=== PATIENT | female | born 1945 ===

== ENCOUNTER 2020-07-21 11:06 | Inpatient (IN) ==
[2020-07-21] MEDS ORDERED: MORPHINE 4 MG/1 ML VIAL IV PRN (15:12)
[2020-07-21] MEDS ORDERED: ONDANSETRON 4 MG/2 ML VIAL IV PRN (15:12)
[2020-07-21] MEDS ORDERED: ALBUTEROL 2.5 MG/3 ML NEB RESP TX PRN (15:12)
[2020-07-21] MEDS ORDERED: ENOXAPARIN 30 MG/0.3 ML SYRINGE SUBCUT SCH (15:30)
[2020-07-21] MEDS ORDERED: GLUCAGON 1 MG VIAL IM PRN (17:31)
[2020-07-21] MEDS ORDERED: DIGOXIN 0.5 MG/2 ML AMP IV ONE ×2 (18:30→19:30)
[2020-07-21 18:40] LABS: ABG Base Excess -9.3 MMOL/L (-2.5-2.5); ABG HCO3 16.9 MMOL/L (20-26); ABG Oxygen Saturation 94.9 % (95-100); ABG PCO2 28.6 MM HG (35-48); ABG PH 7.337 (7.35-7.45); ABG PO2 81.2 MM HG (80-95); ABG TCO2 13.9 MMOL/L (23-27)
[2020-07-21] MEDS: INSULIN LISPRO 100 UNIT/ML SUBCUT SCH (19:04)
[2020-07-21] MEDS: MIDAZOLAM 100 MG in SODIUM CHLORIDE 0.9% 80 ML IV PRN (19:14)
[2020-07-21] MEDS: fentaNYL INJ 1,250 MCG in SODIUM CHLORIDE 0.9% 225 ML IV PRN (19:14)
[2020-07-21] MEDS: FAMOTIDINE 20 MG/2 ML VIAL IV SCH (20:50)
[2020-07-21] MEDS: cefTRIAXone 1,000 MG in SYRINGE 1 EACH IV SCH (20:50)
[2020-07-21] MEDS: INSULIN GLARGINE 100 UNIT/ML SUBCUT SCH (22:23)
[2020-07-22] MEDS: INSULIN LISPRO 100 UNIT/ML SUBCUT SCH ×4 (00:58→17:44)
[2020-07-22 03:04] LABS: ABG Base Excess -11.1 MMOL/L (-2.5-2.5); ABG HCO3 15.1 MMOL/L (20-26); ABG Oxygen Saturation 98.1 % (95-100); ABG PCO2 35.1 MM HG (35-48); ABG PH 7.252 (7.35-7.45); ABG PO2 154.7 MM HG (80-95); ABG TCO2 16.2 MMOL/L (23-27); Allen Test Positive; Pt O2 Delivery Device Ventilator
[2020-07-22] MEDS: fentaNYL INJ 1,250 MCG in SODIUM CHLORIDE 0.9% 225 ML IV PRN ×2 (03:15→14:20)
[2020-07-22 04:54] LABS: Basophils % 0.1 % (0.0-0.8); Eosinophils % 0.1 % (0.00-10.9); Hematocrit 31.1 VOL% (35.7-47.0); Hemoglobin 9.6 GM/DL (12.0-16.0); Immature Granulocytes % 2.5 %; Immature Granulocytes Absolute 0.25 #; Lymphocytes # 0.4 10*3/uL (1.4-4.0); Lymphocytes % 4.1 % (21.3-54.2); Mean Corpuscular HGB Conc 30.9 GM/DL (32-36); Mean Corpuscular Volume 92.6 FL (87-102); Mean Platelet Volume 10.4 FL (9.6-12.0); Monocytes % 1.3 % (1.7-12.7); Neutrophils % 91.9 % (38.7-73.9); Platelet Count 212 T/CUMM (130-400); Red Blood Count 3.36 MC/CUMM (3.8-5.5); Red Cell Distribution Width 17.2 % (9.3-17.3)
[2020-07-22 05:14] LABS: Lymphocytes 6 % (20-55); Platelet Estimate Adequate; Segmented Neutrophils 92 % (50-85); Total Cells Counted 100
[2020-07-22 05:15] LABS: Hypochromasia Slight; Microcytosis Slight
[2020-07-22 05:26] LABS: Albumin 1.9 G/DL (3.4-5.0); Bilirubin,Total 0.4 MG/DL (0.2-1.0); Calcium 7.6 MG/DL (8.5-10.1); Osmolality,Calculated 319.8 MOS/KG (273-304); Potassium 4.3 MMOL/L (3.5-5.1); Thyroid Stimulating Hormone 27.9 uIU/ml (0.358-3.74); Total Protein 5.2 G/DL (6.4-8.3)
[2020-07-22] MEDS: FAMOTIDINE 20 MG/2 ML VIAL IV SCH ×2 (08:01→21:02)
[2020-07-22] MEDS ORDERED: SODIUM BICARBONATE 50 MEQ/50 ML VIAL IV ONE (08:34)
[2020-07-22] MEDS: SODIUM BICARBONATE 650 MG TABLET PO SCH ×3 (12:30→21:01)
[2020-07-22] MEDS: cefTRIAXone 1,000 MG in SYRINGE 1 EACH IV SCH (18:26)
[2020-07-22] MEDS: METOPROLOL TARTRATE 25 MG TABLET PO SCH (21:01)
[2020-07-22] MEDS: INSULIN GLARGINE 100 UNIT/ML SUBCUT SCH (22:20)
[2020-07-23] MEDS: INSULIN LISPRO 100 UNIT/ML SUBCUT SCH ×5 (00:25→23:47)
[2020-07-23] MEDS: fentaNYL INJ 1,250 MCG in SODIUM CHLORIDE 0.9% 225 ML IV PRN ×2 (02:57→15:00)
[2020-07-23 04:10] LABS: ABG Base Excess -8.9 MMOL/L (-2.5-2.5); ABG HCO3 17.3 MMOL/L (20-26); ABG Oxygen Saturation 98.7 % (95-100); ABG PCO2 38.8 MM HG (35-48); ABG PH 7.265 (7.35-7.45); Allen Test Positive; Pt O2 Delivery Device Ventilator
[2020-07-23 04:40] LABS: Basophils % 0.1 % (0.0-0.8); Eosinophils # 0.1 10*3/uL (0.0-0.87); Eosinophils % 0.6 % (0.00-10.9); Hematocrit 30.6 VOL% (35.7-47.0); Hemoglobin 9.6 GM/DL (12.0-16.0); Immature Granulocytes % 1.8 %; Lymphocytes # 1.1 10*3/uL (1.4-4.0); Lymphocytes % 9.8 % (21.3-54.2); Mean Corpuscular HGB Conc 31.4 GM/DL (32-36); Mean Corpuscular Volume 91.1 FL (87-102); Mean Platelet Volume 10.7 FL (9.6-12.0); Monocytes % 1.6 % (1.7-12.7); Neutrophils % 86.1 % (38.7-73.9); Platelet Count 199 T/CUMM (130-400); Red Blood Count 3.36 MC/CUMM (3.8-5.5); Red Cell Distribution Width 17.1 % (9.3-17.3); White Blood Count 10.9 T/CUMM (4-12)
[2020-07-23 05:13] LABS: Alanine Aminotransferase 15 U/L (13-56); Albumin 1.8 G/DL (3.4-5.0); Alkaline Phosphatase 105 U/L (45-117); Aspartate Amino Transferase 29 U/L (0-37); Bilirubin,Total < 0.39 MG/DL (0.2-1.0); Blood Urea Nitrogen 112 MG/DL (7-18); Calcium 7.8 MG/DL (8.5-10.1); Carbon Dioxide 18 MMOL/L (21-32); Estimated Glom Filtration Rate 5 ML/MIN; Glucose 122 MG/DL (74-106); Osmolality,Calculated 324.7 MOS/KG (273-304); Potassium 4.4 MMOL/L (3.5-5.1); Sodium 145 MMOL/L (136-145); Total Protein 5.4 G/DL (6.4-8.3)
[2020-07-23 07:40] LABS: Hepatitis B Core IgM Quant < 0.05 Index; Hepatitis B Surface Ag Quant < 0.10 Index; Hepatitis B Surface Ag Result Non-Reactive (NonReactive); Hepatitis C Virus Ab Quant 0.23 Index; Hepatitis C Virus Ab Result Non-Reactive (NonReactive)
[2020-07-23] MEDS: METOPROLOL TARTRATE 25 MG TABLET PO SCH ×2 (08:29→20:27)
[2020-07-23] MEDS: SODIUM BICARBONATE 650 MG TABLET PO SCH ×3 (08:29→20:27)
[2020-07-23] MEDS: FAMOTIDINE 20 MG/2 ML VIAL IV SCH (08:31)
[2020-07-23] MEDS: MIDAZOLAM 100 MG in SODIUM CHLORIDE 0.9% 80 ML IV PRN (14:59)
[2020-07-23] MEDS: cefTRIAXone 1,000 MG in SYRINGE 1 EACH IV SCH (17:32)
[2020-07-23] MEDS ORDERED: HEPARIN 10,000 UNIT/10 ML VIAL IV SCH (19:45)
[2020-07-23] MEDS: DEXTROSE 50% 25 GM/50 ML VIAL IV PRN (23:54)
[2020-07-24] MEDS ORDERED: NOREPINEPHRINE 8 MG in SODIUM CHLORIDE 0.9% 242 ML IV PRN (02:17)
[2020-07-24] MEDS: fentaNYL INJ 1,250 MCG in SODIUM CHLORIDE 0.9% 225 ML IV PRN ×3 (03:03→20:23)
[2020-07-24 04:20] LABS: ABG Base Excess -6.8 MMOL/L (-2.5-2.5); ABG HCO3 18.9 MMOL/L (20-26); ABG Oxygen Saturation 98.3 % (95-100); ABG PCO2 35.3 MM HG (35-48); ABG PH 7.328 (7.35-7.45); Allen Test Positive; Pt O2 Delivery Device Ventilator
[2020-07-24 05:11] LABS: Basophils % 0.2 % (0.0-0.8); Eosinophils # 0.2 10*3/uL (0.0-0.87); Eosinophils % 1.5 % (0.00-10.9); Hematocrit 28.1 VOL% (35.7-47.0); Hemoglobin 8.7 GM/DL (12.0-16.0); Immature Granulocytes % 2.6 %; Immature Granulocytes Absolute 0.41 #; Lymphocytes # 1.3 10*3/uL (1.4-4.0); Lymphocytes % 8.5 % (21.3-54.2); Mean Corpuscular Volume 91.5 FL (87-102); Mean Platelet Volume 11.1 FL (9.6-12.0); Monocytes % 2.3 % (1.7-12.7); Neutrophils % 84.9 % (38.7-73.9); Platelet Count 166 T/CUMM (130-400); Red Blood Count 3.07 MC/CUMM (3.8-5.5); Red Cell Distribution Width 17.1 % (9.3-17.3); White Blood Count 15.6 T/CUMM (4-12)
[2020-07-24 05:36] LABS: Albumin 1.7 G/DL (3.4-5.0); Bilirubin,Total 0.4 MG/DL (0.2-1.0); Calcium 7.6 MG/DL (8.5-10.1); Osmolality,Calculated 322.6 MOS/KG (273-304); Potassium 4.2 MMOL/L (3.5-5.1)
[2020-07-24] MEDS: INSULIN LISPRO 100 UNIT/ML SUBCUT SCH ×4 (05:59→23:52)
[2020-07-24] MEDS: SODIUM BICARBONATE 650 MG TABLET PO SCH ×3 (09:05→20:22)
[2020-07-24] MEDS: METOPROLOL TARTRATE 25 MG TABLET PO SCH ×2 (09:06→20:22)
[2020-07-24] MEDS: FAMOTIDINE 20 MG/2 ML VIAL IV SCH (09:07)
[2020-07-24] MEDS ORDERED: ALTEPLASE 2 MG VIAL IV ONE ×2 (12:00)
[2020-07-24] MEDS: POLYETHYLENE GLYCOL POWDER 17 GM PACK PO SCH (12:20)
[2020-07-24] MEDS: FLUCONAZOLE INJ 200 MG in PREMIX 1 EACH IV SCH (12:21)
[2020-07-24] MEDS: PHENYLEPHRINE DRIP 40 MG/250 ML PREMIX IV PRN (15:14)
[2020-07-24] MEDS: METOCLOPRAMIDE 10 MG/2 ML VIAL IV SCH (17:19)
[2020-07-24] MEDS: cefTRIAXone 1,000 MG in SYRINGE 1 EACH IV SCH (17:32)
[2020-07-25 00:06] LABS: CDT Result Negative (Negative); CDT Specimen Source STOOL
[2020-07-25 03:20] LABS: Basophils % 0.2 % (0.0-0.8); Eosinophils # 0.1 10*3/uL (0.0-0.87); Eosinophils % 1.1 % (0.00-10.9); Hematocrit 25.8 VOL% (35.7-47.0); Hemoglobin 7.9 GM/DL (12.0-16.0); Immature Granulocytes % 2.2 %; Immature Granulocytes Absolute 0.29 #; Lymphocytes # 1.4 10*3/uL (1.4-4.0); Lymphocytes % 10.8 % (21.3-54.2); Mean Corpuscular HGB Conc 30.6 GM/DL (32-36); Mean Corpuscular Volume 91.5 FL (87-102); Mean Platelet Volume 11.4 FL (9.6-12.0); Monocytes % 2.4 % (1.7-12.7); Neutrophils % 83.3 % (38.7-73.9); Platelet Count 117 T/CUMM (130-400); Red Blood Count 2.82 MC/CUMM (3.8-5.5); Red Cell Distribution Width 16.9 % (9.3-17.3); White Blood Count 13.3 T/CUMM (4-12)
[2020-07-25 03:33] LABS: Calcium 7.6 MG/DL (8.5-10.1); Osmolality,Calculated 305.1 MOS/KG (273-304); Potassium 4.2 MMOL/L (3.5-5.1)
[2020-07-25 04:13] LABS: ABG HCO3 19.7 MMOL/L (20-26); ABG Oxygen Saturation 97.2 % (95-100); ABG PCO2 35.1 MM HG (35-48); ABG PH 7.368 (7.35-7.45); ABG PO2 111.7 MM HG (80-95); ABG TCO2 20.8 MMOL/L (23-27); Allen Test Positive; Pt O2 Delivery Device Ventilator
[2020-07-25] MEDS: METOCLOPRAMIDE 10 MG/2 ML VIAL IV SCH ×4 (05:11→18:48)
[2020-07-25] MEDS: INSULIN LISPRO 100 UNIT/ML SUBCUT SCH ×3 (05:11→18:34)
[2020-07-25] MEDS: POLYETHYLENE GLYCOL POWDER 17 GM PACK PO SCH (08:06)
[2020-07-25] MEDS: SODIUM BICARBONATE 650 MG TABLET PO SCH ×3 (08:06→20:06)
[2020-07-25] MEDS: METOPROLOL TARTRATE 25 MG TABLET PO SCH ×2 (08:06→20:06)
[2020-07-25] MEDS: FAMOTIDINE 20 MG/2 ML VIAL IV SCH (08:06)
[2020-07-25] MEDS: FLUCONAZOLE INJ 200 MG in PREMIX 1 EACH IV SCH (11:55)
[2020-07-25] MEDS: cefTRIAXone 1,000 MG in SYRINGE 1 EACH IV SCH (18:40)
[2020-07-26] MEDS: INSULIN LISPRO 100 UNIT/ML SUBCUT SCH ×4 (00:04→18:54)
[2020-07-26 03:12] LABS: ABG Base Excess -5.5 MMOL/L (-2.5-2.5); ABG HCO3 18.5 MMOL/L (20-26); ABG Oxygen Saturation 97.9 % (95-100); ABG PCO2 30.2 MM HG (35-48); ABG PH 7.405 (7.35-7.45); ABG PO2 122.6 MM HG (80-95); ABG TCO2 19.4 MMOL/L (23-27); Allen Test Positive; Pt O2 Delivery Device Ventilator
[2020-07-26 05:05] LABS: Basophils % 0.1 % (0.0-0.8); Eosinophils # 0.1 10*3/uL (0.0-0.87); Eosinophils % 0.9 % (0.00-10.9); Hematocrit 24.9 VOL% (35.7-47.0); Hemoglobin 7.7 GM/DL (12.0-16.0); Immature Granulocytes % 2.4 %; Immature Granulocytes Absolute 0.28 #; Lymphocytes # 1.5 10*3/uL (1.4-4.0); Lymphocytes % 12.7 % (21.3-54.2); Mean Corpuscular HGB Conc 30.9 GM/DL (32-36); Mean Corpuscular Volume 91.2 FL (87-102); Mean Platelet Volume 11.6 FL (9.6-12.0); Monocytes % 2.4 % (1.7-12.7); Neutrophils % 81.5 % (38.7-73.9); Platelet Count 139 T/CUMM (130-400); Red Blood Count 2.73 MC/CUMM (3.8-5.5); Red Cell Distribution Width 16.8 % (9.3-17.3); White Blood Count 11.6 T/CUMM (4-12)
[2020-07-26 05:27] LABS: Albumin 1.4 G/DL (3.4-5.0); Bilirubin,Total 0.4 MG/DL (0.2-1.0); Calcium 8.2 MG/DL (8.5-10.1); Potassium 4.5 MMOL/L (3.5-5.1); Total Protein 4.8 G/DL (6.4-8.3)
[2020-07-26] MEDS: METOPROLOL TARTRATE 25 MG TABLET PO SCH ×2 (08:25→20:15)
[2020-07-26] MEDS: POLYETHYLENE GLYCOL POWDER 17 GM PACK PO SCH (08:25)
[2020-07-26] MEDS: FAMOTIDINE 20 MG/2 ML VIAL IV SCH (08:25)
[2020-07-26] MEDS: SODIUM BICARBONATE 650 MG TABLET PO SCH ×3 (08:25→20:15)
[2020-07-26] MEDS: FLUCONAZOLE INJ 200 MG in PREMIX 1 EACH IV SCH (11:41)
[2020-07-26] MEDS: cefTRIAXone 1,000 MG in SYRINGE 1 EACH IV SCH (18:30)
[2020-07-27] MEDS: PHENYLEPHRINE DRIP 40 MG/250 ML PREMIX IV PRN (00:03)
[2020-07-27] MEDS: INSULIN LISPRO 100 UNIT/ML SUBCUT SCH ×4 (00:30→18:06)
[2020-07-27 03:21] LABS: ABG Base Excess -0.5 MMOL/L (-2.5-2.5); ABG Oxygen Saturation 98.9 % (95-100); ABG PCO2 33.6 MM HG (35-48); ABG PH 7.447 (7.35-7.45); ABG TCO2 21.9 MMOL/L (23-27); Allen Test Positive; Pt O2 Delivery Device Ventilator
[2020-07-27 04:39] LABS: Basophils % 0.1 % (0.0-0.8); Eosinophils # 0.2 10*3/uL (0.0-0.87); Eosinophils % 1.1 % (0.00-10.9); Hematocrit 22.4 VOL% (35.7-47.0); Immature Granulocytes % 4.6 %; Immature Granulocytes Absolute 0.69 #; Lymphocytes # 2.1 10*3/uL (1.4-4.0); Lymphocytes % 13.8 % (21.3-54.2); Mean Corpuscular HGB Conc 31.3 GM/DL (32-36); Mean Corpuscular Volume 90.7 FL (87-102); Mean Platelet Volume 11.1 FL (9.6-12.0); Monocytes % 2.6 % (1.7-12.7); NRBC # 0.03 10*3/uL; Neutrophils % 77.8 % (38.7-73.9); Platelet Count 178 T/CUMM (130-400); Red Blood Count 2.47 MC/CUMM (3.8-5.5); Red Cell Distribution Width 16.7 % (9.3-17.3); White Blood Count 14.9 T/CUMM (4-12)
[2020-07-27 04:50] LABS: Calcium 7.9 MG/DL (8.5-10.1)
[2020-07-27 05:33] LABS: Atypical Lymphocytes Few; Band Neutrophils 1 % (0-10); Eosinophils 1 % (0-10); Lymphocytes 16 % (20-55); Segmented Neutrophils 79 % (50-85); Total Cells Counted 100
[2020-07-27 05:34] LABS: Hypochromasia Slight; Microcytosis 1+; Platelet Estimate Adequate
[2020-07-27] MEDS ORDERED: ceFAZolin 1,000 MG in SYRINGE 1 EACH IV ONE ×2 (07:00→09:00)
[2020-07-27] MEDS ORDERED: SODIUM CHLORIDE 0.9% 1,000 ML IV PRN (07:48)
[2020-07-27] MEDS: METOPROLOL TARTRATE 25 MG TABLET PO SCH ×2 (09:00→20:37)
[2020-07-27] MEDS: POLYETHYLENE GLYCOL POWDER 17 GM PACK PO SCH (09:00)
[2020-07-27] MEDS: FAMOTIDINE 20 MG/2 ML VIAL IV SCH (09:00)
[2020-07-27] MEDS: SODIUM BICARBONATE 650 MG TABLET PO SCH ×3 (09:01→20:39)
[2020-07-27] MEDS: FLUCONAZOLE INJ 200 MG in PREMIX 1 EACH IV SCH (12:00)
[2020-07-27] MEDS ORDERED: HEPARIN 5,000 UNIT/1 ML VIAL ONE (13:13)
[2020-07-27] MEDS ORDERED: ROCURONIUM 50 MG/5 ML VIAL IV ONE (13:28)
[2020-07-27] MEDS ORDERED: MIDAZOLAM 10 MG/2 ML VIAL ONE (13:28)
[2020-07-27] MEDS ORDERED: ePHEDrine 50 MG/ML VIAL ONE (14:25)
[2020-07-27] MEDS ORDERED: METOPROLOL TARTRATE 25 MG TABLET PO ONE (16:49)
[2020-07-27] MEDS: cefTRIAXone 1,000 MG in SYRINGE 1 EACH IV SCH (18:57)
[2020-07-27] MEDS: ZINC OXIDE PASTE 113 GM TUBE TOP SCH (20:38)
[2020-07-28] MEDS: INSULIN LISPRO 100 UNIT/ML SUBCUT SCH ×4 (01:06→17:18)
[2020-07-28] MEDS: fentaNYL INJ 1,250 MCG in SODIUM CHLORIDE 0.9% 225 ML IV PRN (01:53)
[2020-07-28] MEDS: MIDAZOLAM 100 MG in SODIUM CHLORIDE 0.9% 80 ML IV PRN (01:54)
[2020-07-28 04:54] LABS: ABG Base Excess -0.8 MMOL/L (-2.5-2.5); ABG HCO3 23.4 MMOL/L (20-26); ABG Oxygen Saturation 97.6 % (95-100); ABG PCO2 36.5 MM HG (35-48); ABG PH 7.425 (7.35-7.45); ABG PO2 115.7 MM HG (80-95); ABG TCO2 24.5 MMOL/L (23-27); Allen Test Positive; Pt O2 Delivery Device Ventilator
[2020-07-28 05:40] LABS: Basophils # 0.1 10*3/uL (0.0-0.2); Basophils % 0.5 % (0.0-0.8); Eosinophils # 0.1 10*3/uL (0.0-0.87); Hematocrit 28.8 VOL% (35.7-47.0); Immature Granulocytes % 6.2 %; Immature Granulocytes Absolute 0.83 #; Lymphocytes % 15.1 % (21.3-54.2); Mean Corpuscular HGB Conc 32.3 GM/DL (32-36); Mean Corpuscular Volume 92.6 FL (87-102); Mean Platelet Volume 10.7 FL (9.6-12.0); Monocytes % 2.8 % (1.7-12.7); NRBC # 0.08 10*3/uL; Neutrophils % 74.4 % (38.7-73.9); Platelet Count 141 T/CUMM (130-400); Red Cell Distribution Width 15.8 % (9.3-17.3); White Blood Count 13.3 T/CUMM (4-12)
[2020-07-28 05:47] LABS: Hemoglobin 9.3 GM/DL (12.0-16.0); Red Blood Count 3.11 MC/CUMM (3.8-5.5)
[2020-07-28 06:14] LABS: Band Neutrophils 1 % (0-10); Eosinophils 1 % (0-10); Lymphocytes 17 % (20-55); Metamyelocytes 1 %; Nucleated Red Blood Cells 1 (0-5); Segmented Neutrophils 76 % (50-85); Total Cells Counted 100
[2020-07-28 06:16] LABS: Atypical Lymphocytes Few; Calcium 7.5 MG/DL (8.5-10.1); Microcytosis 1+; Osmolality,Calculated 304.1 MOS/KG (273-304); Platelet Estimate Adequate
[2020-07-28] MEDS: ZINC OXIDE PASTE 113 GM TUBE TOP SCH ×2 (08:51→20:23)
[2020-07-28] MEDS: POLYETHYLENE GLYCOL POWDER 17 GM PACK PO SCH (08:53)
[2020-07-28] MEDS: METOPROLOL TARTRATE 25 MG TABLET PO SCH ×2 (08:53→20:23)
[2020-07-28] MEDS: FAMOTIDINE 20 MG/2 ML VIAL IV SCH (08:54)
[2020-07-28] MEDS: SODIUM BICARBONATE 650 MG TABLET PO SCH ×3 (08:54→20:23)
[2020-07-28] MEDS: FLUCONAZOLE INJ 200 MG in PREMIX 1 EACH IV SCH (11:48)
[2020-07-28] MEDS: PHENYLEPHRINE DRIP 40 MG/250 ML PREMIX IV PRN (15:40)
[2020-07-28] MEDS ORDERED: ALTEPLASE 2 MG VIAL INTRACATH ONE ×2 (16:30)
[2020-07-28] MEDS: cefTRIAXone 1,000 MG in SYRINGE 1 EACH IV SCH (18:00)
[2020-07-29] MEDS: INSULIN LISPRO 100 UNIT/ML SUBCUT SCH ×5 (00:12→23:35)
[2020-07-29 04:17] LABS: ABG Base Excess 0.7 MMOL/L (-2.5-2.5); ABG HCO3 25.1 MMOL/L (20-26); ABG Oxygen Saturation 98.2 % (95-100); ABG PCO2 38.8 MM HG (35-48); ABG TCO2 23.4 MMOL/L (23-27); Allen Test Positive; Pt O2 Delivery Device Ventilator
[2020-07-29] MEDS: fentaNYL INJ 1,250 MCG in SODIUM CHLORIDE 0.9% 225 ML IV PRN (05:59)
[2020-07-29 06:01] LABS: Basophils % 0.1 % (0.0-0.8); Eosinophils # 0.2 10*3/uL (0.0-0.87); Eosinophils % 1.2 % (0.00-10.9); Hematocrit 25.3 VOL% (35.7-47.0); Hemoglobin 7.8 GM/DL (12.0-16.0); Immature Granulocytes % 4.6 %; Immature Granulocytes Absolute 0.55 #; Lymphocytes # 1.6 10*3/uL (1.4-4.0); Lymphocytes % 13.2 % (21.3-54.2); Mean Corpuscular HGB Conc 30.8 GM/DL (32-36); Mean Corpuscular Volume 96.6 FL (87-102); Mean Platelet Volume 11.1 FL (9.6-12.0); Monocytes % 3.2 % (1.7-12.7); NRBC # 0.02 10*3/uL; Neutrophils % 77.7 % (38.7-73.9); Platelet Count 115 T/CUMM (130-400); Red Blood Count 2.62 MC/CUMM (3.8-5.5); Red Cell Distribution Width 16.2 % (9.3-17.3)
[2020-07-29 06:13] LABS: Calcium 7.6 MG/DL (8.5-10.1); Osmolality,Calculated 292.4 MOS/KG (273-304); Potassium 3.9 MMOL/L (3.5-5.1)
[2020-07-29] MEDS: FAMOTIDINE 20 MG/2 ML VIAL IV SCH (08:00)
[2020-07-29] MEDS: SODIUM BICARBONATE 650 MG TABLET PO SCH (08:07)
[2020-07-29] MEDS: POLYETHYLENE GLYCOL POWDER 17 GM PACK PO SCH (08:08)
[2020-07-29] MEDS: ZINC OXIDE PASTE 113 GM TUBE TOP SCH ×2 (08:09→20:39)
[2020-07-29 08:48] LABS: Anisocytosis 3+; Band Neutrophils 2 % (0-10); Lymphocytes 15 % (20-55); Macrocytosis 3+; Metamyelocytes 3 %; Myelocytes 1 %; Platelet Estimate Decreased; Polychromasia Few; Segmented Neutrophils 75 % (50-85); Total Cells Counted 100
[2020-07-29] MEDS: METOPROLOL TARTRATE 25 MG TABLET PO SCH ×2 (08:50→20:39)
[2020-07-29] MEDS: FLUCONAZOLE INJ 200 MG in PREMIX 1 EACH IV SCH (12:05)
[2020-07-29 18:03] LABS: Hematocrit 25.8 VOL% (35.7-47.0); Hemoglobin 7.8 GM/DL (12.0-16.0)
[2020-07-30 04:44] LABS: Allen Test Positive; Pt O2 Delivery Device Ventilator
[2020-07-30 04:53] LABS: ABG Base Excess 0.3 MMOL/L (-2.5-2.5); ABG HCO3 24.7 MMOL/L (20-26); ABG Oxygen Saturation 99.2 % (95-100); ABG PCO2 40.7 MM HG (35-48); ABG PH 7.398 (7.35-7.45); ABG TCO2 23.5 MMOL/L (23-27)
[2020-07-30] MEDS: INSULIN LISPRO 100 UNIT/ML SUBCUT SCH ×3 (06:30→18:33)
[2020-07-30 06:42] LABS: Basophils % 0.2 % (0.0-0.8); Eosinophils # 0.1 10*3/uL (0.0-0.87); Eosinophils % 1.2 % (0.00-10.9); Hematocrit 23.4 VOL% (35.7-47.0); Hemoglobin 7.1 GM/DL (12.0-16.0); Immature Granulocytes % 4.5 %; Immature Granulocytes Absolute 0.47 #; Lymphocytes # 1.2 10*3/uL (1.4-4.0); Lymphocytes % 11.8 % (21.3-54.2); Mean Corpuscular HGB Conc 30.3 GM/DL (32-36); Mean Corpuscular Volume 98.7 FL (87-102); Mean Platelet Volume 11.7 FL (9.6-12.0); Neutrophils % 78.3 % (38.7-73.9); Platelet Count 113 T/CUMM (130-400); Red Blood Count 2.37 MC/CUMM (3.8-5.5); Red Cell Distribution Width 16.5 % (9.3-17.3); White Blood Count 10.4 T/CUMM (4-12)
[2020-07-30 06:53] LABS: Calcium 7.8 MG/DL (8.5-10.1); Osmolality,Calculated 298.3 MOS/KG (273-304)
[2020-07-30] MEDS ORDERED: MAGNESIUM SULF RIDER 2 GM in PREMIX 1 EACH IV ONE (07:54)
[2020-07-30] MEDS: METOPROLOL TARTRATE 25 MG TABLET PO SCH ×2 (08:46→20:24)
[2020-07-30] MEDS: POLYETHYLENE GLYCOL POWDER 17 GM PACK PO SCH (08:46)
[2020-07-30] MEDS: ZINC OXIDE PASTE 113 GM TUBE TOP SCH ×2 (08:46→20:36)
[2020-07-30] MEDS: FAMOTIDINE 20 MG/2 ML VIAL IV SCH (08:47)
[2020-07-30] MEDS: hydrALAZINE 20 MG/1 ML VIAL IV PRN (12:03)
[2020-07-30] MEDS: FLUCONAZOLE INJ 200 MG in PREMIX 1 EACH IV SCH (12:03)
[2020-07-30] MEDS ORDERED: METOPROLOL TARTRATE 5 MG/5 ML VIAL IV ONE ×2 (13:33→13:35)
[2020-07-30] MEDS ORDERED: LABETALOL 20 MG/4 ML SYRINGE IV ONE (13:40)
[2020-07-30] MEDS ORDERED: ETOMIDATE 20 MG/10 ML VIAL IV ONE ×2 (13:46→13:51)
[2020-07-30] MEDS ORDERED: SUCCINYLCHOLINE 200 MG/10 ML VIAL ONE (13:47)
[2020-07-30] MEDS ORDERED: SUCCINYLCHOLINE 200 MG/10 ML VIAL IV ONE (13:51)
[2020-07-30 14:38] LABS: ABG Base Excess -2.6 MMOL/L (-2.5-2.5); ABG HCO3 22.3 MMOL/L (20-26); ABG Oxygen Saturation 97.9 % (95-100); ABG PCO2 33.3 MM HG (35-48); ABG PH 7.416 (7.35-7.45); ABG PO2 99.4 MM HG (80-95); ABG TCO2 19.7 MMOL/L (23-27)
[2020-07-30] MEDS: PHENYLEPHRINE DRIP 40 MG/250 ML PREMIX IV PRN ×2 (15:38→19:10)
[2020-07-30 15:39] LABS: Hematocrit 27.2 VOL% (35.7-47.0); Hemoglobin 8.3 GM/DL (12.0-16.0)
[2020-07-31] MEDS: INSULIN LISPRO 100 UNIT/ML SUBCUT SCH ×4 (02:44→18:00)
[2020-07-31 04:19] LABS: ABG Base Excess 0.2 MMOL/L (-2.5-2.5); ABG HCO3 24.6 MMOL/L (20-26); ABG Oxygen Saturation 99.5 % (95-100); ABG PCO2 34.6 MM HG (35-48); ABG PH 7.448 (7.35-7.45); ABG TCO2 22.2 MMOL/L (23-27)
[2020-07-31 05:08] LABS: Basophils # 0.1 10*3/uL (0.0-0.2); Basophils % 0.3 % (0.0-0.8); Eosinophils # 0.1 10*3/uL (0.0-0.87); Eosinophils % 0.5 % (0.00-10.9); Hematocrit 23.6 VOL% (35.7-47.0); Hemoglobin 7.5 GM/DL (12.0-16.0); Immature Granulocytes % 6.3 %; Immature Granulocytes Absolute 0.94 #; Lymphocytes # 1.7 10*3/uL (1.4-4.0); Lymphocytes % 11.7 % (21.3-54.2); Mean Corpuscular HGB Conc 31.8 GM/DL (32-36); Mean Corpuscular Volume 95.2 FL (87-102); Mean Platelet Volume 10.5 FL (9.6-12.0); Monocytes % 4.6 % (1.7-12.7); NRBC # 0.02 10*3/uL; Neutrophils % 76.6 % (38.7-73.9); Platelet Count 86 T/CUMM (130-400); Red Blood Count 2.48 MC/CUMM (3.8-5.5); Red Cell Distribution Width 16.7 % (9.3-17.3); White Blood Count 14.9 T/CUMM (4-12)
[2020-07-31 05:38] LABS: Band Neutrophils 3 % (0-10); Eosinophils 2 % (0-10); Hypochromasia 2+; Lymphocytes 6 % (20-55); Microcytosis 1+; Platelet Estimate Decreased; Segmented Neutrophils 84 % (50-85); Total Cells Counted 100
[2020-07-31 06:25] LABS: Osmolality,Calculated 294.4 MOS/KG (273-304); Potassium 4.1 MMOL/L (3.5-5.1)
[2020-07-31] MEDS: FAMOTIDINE 20 MG/2 ML VIAL IV SCH (08:13)
[2020-07-31] MEDS: METOPROLOL TARTRATE 25 MG TABLET PO SCH ×2 (08:13→20:32)
[2020-07-31] MEDS: POLYETHYLENE GLYCOL POWDER 17 GM PACK PO SCH (08:13)
[2020-07-31] MEDS: ZINC OXIDE PASTE 113 GM TUBE TOP SCH ×2 (08:14→20:33)
[2020-07-31] MEDS: FLUCONAZOLE INJ 200 MG in PREMIX 1 EACH IV SCH (11:05)
[2020-07-31] MEDS: methylPREDNISolone SOD SUC 40 MG/1 ML VIAL IV SCH (14:31)
[2020-08-01] MEDS: INSULIN LISPRO 100 UNIT/ML SUBCUT SCH ×4 (00:17→16:59)
[2020-08-01] MEDS: methylPREDNISolone SOD SUC 40 MG/1 ML VIAL IV SCH ×2 (01:50→16:52)
[2020-08-01 03:49] LABS: ABG Base Excess -0.9 MMOL/L (-2.5-2.5); ABG HCO3 23.7 MMOL/L (20-26); ABG Oxygen Saturation 99.6 % (95-100); ABG PCO2 33.4 MM HG (35-48); ABG PH 7.443 (7.35-7.45); ABG TCO2 21.5 MMOL/L (23-27)
[2020-08-01 04:49] LABS: Basophils % 0.2 % (0.0-0.8); Hematocrit 22.8 VOL% (35.7-47.0); Immature Granulocytes % 4.1 %; Immature Granulocytes Absolute 0.54 #; Mean Corpuscular HGB Conc 30.7 GM/DL (32-36); Mean Corpuscular Volume 95.4 FL (87-102); Mean Platelet Volume 11.5 FL (9.6-12.0); Monocytes % 1.8 % (1.7-12.7); Neutrophils % 85.9 % (38.7-73.9); Platelet Count 101 T/CUMM (130-400); Red Blood Count 2.39 MC/CUMM (3.8-5.5); Red Cell Distribution Width 16.6 % (9.3-17.3); White Blood Count 13.1 T/CUMM (4-12)
[2020-08-01 05:15] LABS: Albumin 1.5 G/DL (3.4-5.0); Bilirubin,Total 0.7 MG/DL (0.2-1.0); Calcium 8.1 MG/DL (8.5-10.1); Osmolality,Calculated 293.7 MOS/KG (273-304); Potassium 4.2 MMOL/L (3.5-5.1); Total Protein 5.8 G/DL (6.4-8.3)
[2020-08-01 05:16] LABS: Band Neutrophils 3 % (0-10); Hypochromasia 1+; Lymphocytes 2 % (20-55); Metamyelocytes 1 %; Segmented Neutrophils 91 % (50-85); Total Cells Counted 100
[2020-08-01 05:17] LABS: Microcytosis 2+; Ovalocytes Slight; Platelet Estimate Decreased; Polychromasia Slight
[2020-08-01] MEDS: METOPROLOL TARTRATE 25 MG TABLET PO SCH ×2 (09:08→20:07)
[2020-08-01] MEDS: FAMOTIDINE 20 MG/2 ML VIAL IV SCH (09:08)
[2020-08-01] MEDS: ZINC OXIDE PASTE 113 GM TUBE TOP SCH ×2 (09:09→20:07)
[2020-08-01] MEDS: POLYETHYLENE GLYCOL POWDER 17 GM PACK PO SCH (09:09)
[2020-08-01] MEDS: FLUCONAZOLE INJ 200 MG in PREMIX 1 EACH IV SCH (11:48)
[2020-08-02] MEDS: INSULIN LISPRO 100 UNIT/ML SUBCUT SCH ×4 (00:14→17:50)
[2020-08-02] MEDS: methylPREDNISolone SOD SUC 40 MG/1 ML VIAL IV SCH ×2 (02:00→14:37)
[2020-08-02 05:06] LABS: ABG HCO3 24.6 MMOL/L (20-26); ABG Oxygen Saturation 93.6 % (95-100); ABG PCO2 34.2 MM HG (35-48); ABG PH 7.474 (7.35-7.45); ABG PO2 68.7 MM HG (80-95); ABG TCO2 25.6 MMOL/L (23-27)
[2020-08-02 05:07] LABS: Allen Test Positive
[2020-08-02] MEDS: hydrALAZINE 20 MG/1 ML VIAL IV PRN (06:03)
[2020-08-02 06:50] LABS: Basophils % 0.3 % (0.0-0.8); Hematocrit 22.9 VOL% (35.7-47.0); Hemoglobin 7.4 GM/DL (12.0-16.0); Immature Granulocytes % 4.5 %; Immature Granulocytes Absolute 0.63 #; Lymphocytes # 0.8 10*3/uL (1.4-4.0); Lymphocytes % 5.5 % (21.3-54.2); Mean Corpuscular HGB Conc 32.3 GM/DL (32-36); Mean Corpuscular Volume 94.6 FL (87-102); Mean Platelet Volume 11.2 FL (9.6-12.0); Monocytes % 1.2 % (1.7-12.7); Neutrophils % 88.5 % (38.7-73.9); Platelet Count 126 T/CUMM (130-400); Red Blood Count 2.42 MC/CUMM (3.8-5.5); Red Cell Distribution Width 16.6 % (9.3-17.3); White Blood Count 13.9 T/CUMM (4-12)
[2020-08-02 07:13] LABS: Albumin 1.8 G/DL (3.4-5.0); Bilirubin,Total 0.8 MG/DL (0.2-1.0); Calcium 7.9 MG/DL (8.5-10.1); Osmolality,Calculated 286.1 MOS/KG (273-304); Potassium 4.3 MMOL/L (3.5-5.1); Total Protein 6.2 G/DL (6.4-8.9)
[2020-08-02 07:31] LABS: Band Neutrophils 14 % (0-10); Lymphocytes 5 % (20-55); Segmented Neutrophils 80 % (50-85); Total Cells Counted 100
[2020-08-02 07:32] LABS: Anisocytosis 2+; Ovalocytes Few; Platelet Estimate Adequate; Poikilocytosis Slight; Polychromasia Slight
[2020-08-02] MEDS: METOPROLOL TARTRATE 25 MG TABLET PO SCH ×2 (08:31→20:42)
[2020-08-02] MEDS: FAMOTIDINE 20 MG/2 ML VIAL IV SCH (08:32)
[2020-08-02] MEDS: POLYETHYLENE GLYCOL POWDER 17 GM PACK PO SCH (08:32)
[2020-08-02] MEDS: ZINC OXIDE PASTE 113 GM TUBE TOP SCH ×2 (08:32→20:42)
[2020-08-02] MEDS: FLUCONAZOLE INJ 200 MG in PREMIX 1 EACH IV SCH (11:40)
[2020-08-03] MEDS: INSULIN LISPRO 100 UNIT/ML SUBCUT SCH ×4 (00:48→18:03)
[2020-08-03] MEDS: methylPREDNISolone SOD SUC 40 MG/1 ML VIAL IV SCH ×2 (01:37→14:32)
[2020-08-03 06:01] LABS: Basophils % 0.2 % (0.0-0.8); Hematocrit 21.1 VOL% (35.7-47.0); Hemoglobin 6.9 GM/DL (12.0-16.0); Immature Granulocytes % 4.4 %; Immature Granulocytes Absolute 0.58 #; Lymphocytes # 0.8 10*3/uL (1.4-4.0); Lymphocytes % 5.8 % (21.3-54.2); Mean Corpuscular HGB Conc 32.7 GM/DL (32-36); Mean Corpuscular Volume 91.7 FL (87-102); Mean Platelet Volume 10.5 FL (9.6-12.0); Monocytes % 2.1 % (1.7-12.7); Neutrophils % 87.5 % (38.7-73.9); Platelet Count 156 T/CUMM (130-400); Red Cell Distribution Width 16.4 % (9.3-17.3); White Blood Count 13.1 T/CUMM (4-12)
[2020-08-03 06:33] LABS: Hypochromasia 1+; Lymphocytes 5 % (20-55); Platelet Estimate Normal; Segmented Neutrophils 94 % (50-85); Total Cells Counted 100
[2020-08-03 06:40] LABS: Albumin 1.8 G/DL (3.4-5.0); Bilirubin,Total 0.4 MG/DL (0.2-1.0); Osmolality,Calculated 288.4 MOS/KG (273-304); Potassium 4.5 MMOL/L (3.5-5.1)
[2020-08-03] MEDS: POLYETHYLENE GLYCOL POWDER 17 GM PACK PO SCH (08:27)
[2020-08-03] MEDS: METOPROLOL TARTRATE 25 MG TABLET PO SCH ×2 (08:27→20:03)
[2020-08-03] MEDS: FAMOTIDINE 20 MG/2 ML VIAL IV SCH (08:27)
[2020-08-03] MEDS: ZINC OXIDE PASTE 113 GM TUBE TOP SCH ×2 (08:28→20:04)
[2020-08-03] MEDS ORDERED: SODIUM CHLORIDE 0.9% 1,000 ML IV PRN (08:54)
[2020-08-03] MEDS: hydrALAZINE 20 MG/1 ML VIAL IV PRN (10:33)
[2020-08-03] MEDS ORDERED: HYDROmorphone 2 MG/1 ML VIAL IV PRN (10:50)
[2020-08-03] MEDS ORDERED: HYDROmorphone 2 MG/1 ML VIAL IV ONE (10:50)
[2020-08-03] MEDS: FLUCONAZOLE INJ 200 MG in PREMIX 1 EACH IV SCH (12:20)
[2020-08-03] MEDS: traMADol 50 MG TABLET PO SCH (20:03)
[2020-08-04] MEDS: INSULIN LISPRO 100 UNIT/ML SUBCUT SCH ×4 (00:47→18:10)
[2020-08-04] MEDS: methylPREDNISolone SOD SUC 40 MG/1 ML VIAL IV SCH ×2 (02:33→20:45)
[2020-08-04 05:34] LABS: Basophils % 0.2 % (0.0-0.8); Hematocrit 21.9 VOL% (35.7-47.0); Hemoglobin 6.8 GM/DL (12.0-16.0); Immature Granulocytes % 4.2 %; Immature Granulocytes Absolute 0.49 #; Lymphocytes # 1.1 10*3/uL (1.4-4.0); Mean Corpuscular HGB Conc 31.1 GM/DL (32-36); Mean Corpuscular Volume 95.2 FL (87-102); Mean Platelet Volume 10.7 FL (9.6-12.0); Monocytes % 3.3 % (1.7-12.7); Neutrophils % 83.3 % (38.7-73.9); Platelet Count 152 T/CUMM (130-400); Red Cell Distribution Width 16.8 % (9.3-17.3); White Blood Count 11.7 T/CUMM (4-12)
[2020-08-04 05:53] LABS: Calcium 7.7 MG/DL (8.5-10.1); Potassium 4.6 MMOL/L (3.5-5.1)
[2020-08-04] MEDS: POLYETHYLENE GLYCOL POWDER 17 GM PACK PO SCH (08:33)
[2020-08-04] MEDS: FAMOTIDINE 20 MG/2 ML VIAL IV SCH (08:33)
[2020-08-04] MEDS: METOPROLOL TARTRATE 25 MG TABLET PO SCH ×2 (08:33→20:44)
[2020-08-04] MEDS: traMADol 50 MG TABLET PO SCH ×2 (08:33→20:45)
[2020-08-04] MEDS: ZINC OXIDE PASTE 113 GM TUBE TOP SCH ×2 (08:34→20:46)
[2020-08-04] MEDS: FLUCONAZOLE INJ 200 MG in PREMIX 1 EACH IV SCH (20:43)
[2020-08-04] MEDS: INSULIN GLARGINE 100 UNIT/ML SUBCUT SCH (20:46)
[2020-08-05] MEDS: INSULIN LISPRO 100 UNIT/ML SUBCUT SCH ×4 (00:40→18:42)
[2020-08-05 06:51] LABS: Basophils # 0.1 10*3/uL (0.0-0.2); Basophils % 0.3 % (0.0-0.8); Immature Granulocytes % 4.2 %; Immature Granulocytes Absolute 0.63 #; Lymphocytes % 6.7 % (21.3-54.2); Mean Corpuscular HGB Conc 33.3 GM/DL (32-36); Mean Corpuscular Volume 89.1 FL (87-102); Mean Platelet Volume 9.6 FL (9.6-12.0); Neutrophils % 85.8 % (38.7-73.9); Platelet Count 176 T/CUMM (130-400); Red Blood Count 4.04 MC/CUMM (3.8-5.5); White Blood Count 15.2 T/CUMM (4-12)
[2020-08-05 07:17] LABS: Calcium 7.8 MG/DL (8.5-10.1)
[2020-08-05 07:18] LABS: Lymphocytes 11 % (20-55); Platelet Estimate Adequate; Segmented Neutrophils 88 % (50-85); Total Cells Counted 100
[2020-08-05 07:19] LABS: Hypochromasia 1+; Microcytosis 1+
[2020-08-05] MEDS: methylPREDNISolone SOD SUC 40 MG/1 ML VIAL IV SCH ×2 (09:14→20:53)
[2020-08-05] MEDS: FAMOTIDINE 20 MG/2 ML VIAL IV SCH (09:19)
[2020-08-05] MEDS: METOPROLOL TARTRATE 25 MG TABLET PO SCH ×2 (09:21→20:53)
[2020-08-05] MEDS: ZINC OXIDE PASTE 113 GM TUBE TOP SCH ×2 (09:21→20:54)
[2020-08-05] MEDS: POLYETHYLENE GLYCOL POWDER 17 GM PACK PO SCH (09:21)
[2020-08-05] MEDS: traMADol 50 MG TABLET PO SCH ×2 (09:22→20:53)
[2020-08-05] MEDS ORDERED: MAGNESIUM SULF RIDER 2 GM in PREMIX 1 EACH IV ONE (10:04)
[2020-08-05] MEDS: FLUCONAZOLE INJ 200 MG in PREMIX 1 EACH IV SCH (20:52)
[2020-08-05] MEDS: INSULIN GLARGINE 100 UNIT/ML SUBCUT SCH (20:53)
[2020-08-06] MEDS: INSULIN LISPRO 100 UNIT/ML SUBCUT SCH ×5 (00:56→23:29)
[2020-08-06 06:11] LABS: Basophils # 0.1 10*3/uL (0.0-0.2); Basophils % 0.4 % (0.0-0.8); Hematocrit 36.2 VOL% (35.7-47.0); Hemoglobin 12.2 GM/DL (12.0-16.0); Immature Granulocytes % 3.4 %; Immature Granulocytes Absolute 0.56 #; Lymphocytes % 5.7 % (21.3-54.2); Mean Corpuscular HGB Conc 33.7 GM/DL (32-36); Mean Corpuscular Volume 89.2 FL (87-102); Mean Platelet Volume 9.5 FL (9.6-12.0); Monocytes % 2.1 % (1.7-12.7); Neutrophils % 88.4 % (38.7-73.9); Platelet Count 190 T/CUMM (130-400); Red Blood Count 4.06 MC/CUMM (3.8-5.5); Red Cell Distribution Width 16.7 % (9.3-17.3); White Blood Count 16.7 T/CUMM (4-12)
[2020-08-06 06:33] LABS: Hypochromasia Slight; Lymphocytes 5 % (20-55); Microcytosis Slight; Ovalocytes Slight; Platelet Estimate Adequate; Segmented Neutrophils 93 % (50-85); Total Cells Counted 100
[2020-08-06 06:43] LABS: Albumin 2.2 G/DL (3.4-5.0); Bilirubin,Total 0.7 MG/DL (0.2-1.0); Calcium 7.8 MG/DL (8.5-10.1); Potassium 4.9 MMOL/L (3.5-5.1); Total Protein 5.9 G/DL (5.0-7.5)
[2020-08-06] MEDS: ZINC OXIDE PASTE 113 GM TUBE TOP SCH ×2 (08:30→20:32)
[2020-08-06] MEDS: methylPREDNISolone SOD SUC 40 MG/1 ML VIAL IV SCH ×2 (13:22→20:34)
[2020-08-06] MEDS: POLYETHYLENE GLYCOL POWDER 17 GM PACK PO SCH (13:22)
[2020-08-06] MEDS: traMADol 50 MG TABLET PO SCH ×2 (13:23→20:31)
[2020-08-06] MEDS: METOPROLOL TARTRATE 25 MG TABLET PO SCH ×2 (13:23→20:31)
[2020-08-06] MEDS: FAMOTIDINE 20 MG/2 ML VIAL IV SCH (13:26)
[2020-08-06] MEDS: INSULIN GLARGINE 100 UNIT/ML SUBCUT SCH (20:32)
[2020-08-06] MEDS: FLUCONAZOLE INJ 200 MG in PREMIX 1 EACH IV SCH (20:35)
[2020-08-07] MEDS: INSULIN LISPRO 100 UNIT/ML SUBCUT SCH ×4 (06:13→23:45)
[2020-08-07 06:33] LABS: Basophils # 0.1 10*3/uL (0.0-0.2); Basophils % 0.3 % (0.0-0.8); Hemoglobin 11.1 GM/DL (12.0-16.0); Immature Granulocytes % 4.5 %; Immature Granulocytes Absolute 0.87 #; Lymphocytes # 1.2 10*3/uL (1.4-4.0); Lymphocytes % 6.3 % (21.3-54.2); Mean Corpuscular HGB Conc 32.6 GM/DL (32-36); Mean Corpuscular Volume 91.9 FL (87-102); Mean Platelet Volume 10.1 FL (9.6-12.0); Monocytes % 3.1 % (1.7-12.7); Neutrophils % 85.8 % (38.7-73.9); Platelet Count 202 T/CUMM (130-400); White Blood Count 19.3 T/CUMM (4-12)
[2020-08-07 06:50] LABS: Calcium 7.7 MG/DL (8.5-10.1); Osmolality,Calculated 303.1 MOS/KG (273-304); Potassium 4.9 MMOL/L (3.5-5.1)
[2020-08-07 06:55] LABS: Band Neutrophils 1 % (0-10); Lymphocytes 3 % (20-55); Microcytosis 1+; Segmented Neutrophils 94 % (50-85); Total Cells Counted 100
[2020-08-07 06:56] LABS: Hypochromasia Slight; Ovalocytes Slight; Platelet Estimate Normal; Polychromasia Slight
[2020-08-07] MEDS: traMADol 50 MG TABLET PO SCH ×2 (08:52→20:00)
[2020-08-07] MEDS: ZINC OXIDE PASTE 113 GM TUBE TOP SCH ×2 (08:52→20:00)
[2020-08-07] MEDS: METOPROLOL TARTRATE 25 MG TABLET PO SCH ×2 (08:52→20:00)
[2020-08-07] MEDS: POLYETHYLENE GLYCOL POWDER 17 GM PACK PO SCH (08:53)
[2020-08-07] MEDS: FAMOTIDINE 20 MG/2 ML VIAL IV SCH (09:23)
[2020-08-07] MEDS: methylPREDNISolone SOD SUC 40 MG/1 ML VIAL IV SCH (09:24)
[2020-08-07] MEDS: FLUCONAZOLE INJ 200 MG in PREMIX 1 EACH IV SCH (19:56)
[2020-08-07] MEDS: INSULIN GLARGINE 100 UNIT/ML SUBCUT SCH (20:00)
[2020-08-08] MEDS: INSULIN LISPRO 100 UNIT/ML SUBCUT SCH ×3 (05:28→19:31)
[2020-08-08 06:09] LABS: Basophils # 0.1 10*3/uL (0.0-0.2); Basophils % 0.3 % (0.0-0.8); Eosinophils # 0.1 10*3/uL (0.0-0.87); Eosinophils % 0.9 % (0.00-10.9); Hematocrit 33.1 VOL% (35.7-47.0); Hemoglobin 10.8 GM/DL (12.0-16.0); Immature Granulocytes % 5.2 %; Immature Granulocytes Absolute 0.84 #; Lymphocytes # 1.7 10*3/uL (1.4-4.0); Lymphocytes % 10.6 % (21.3-54.2); Mean Corpuscular HGB Conc 32.6 GM/DL (32-36); Mean Corpuscular Volume 93.2 FL (87-102); Mean Platelet Volume 9.9 FL (9.6-12.0); Monocytes % 4.6 % (1.7-12.7); Neutrophils % 78.4 % (38.7-73.9); Platelet Count 218 T/CUMM (130-400); Red Blood Count 3.55 MC/CUMM (3.8-5.5); Red Cell Distribution Width 17.3 % (9.3-17.3); White Blood Count 16.2 T/CUMM (4-12)
[2020-08-08 06:36] LABS: Albumin 2.2 G/DL (3.4-5.0); Bilirubin,Total 0.7 MG/DL (0.2-1.0); Calcium 8.1 MG/DL (8.5-10.1); Osmolality,Calculated 306.7 MOS/KG (273-304); Potassium 4.4 MMOL/L (3.5-5.1); Total Protein 5.3 G/DL (5.0-7.5)
[2020-08-08 06:38] LABS: Lymphocytes 9 % (20-55); Myelocytes 1 %; Segmented Neutrophils 88 % (50-85); Total Cells Counted 100
[2020-08-08 06:39] LABS: Hypochromasia Slight; Microcytosis 1+
[2020-08-08] MEDS: METOPROLOL TARTRATE 25 MG TABLET PO SCH ×2 (19:07→23:41)
[2020-08-08] MEDS: ZINC OXIDE PASTE 113 GM TUBE TOP SCH (19:07)
[2020-08-08] MEDS: FAMOTIDINE 20 MG/2 ML VIAL IV SCH (19:07)
[2020-08-08] MEDS: traMADol 50 MG TABLET PO SCH ×2 (19:07→23:41)
[2020-08-08] MEDS: FLUCONAZOLE INJ 200 MG in PREMIX 1 EACH IV SCH (21:04)
[2020-08-09] MEDS: ZINC OXIDE PASTE 113 GM TUBE TOP SCH ×3 (00:01→20:30)
[2020-08-09] MEDS: INSULIN GLARGINE 100 UNIT/ML SUBCUT SCH ×2 (00:01→20:28)
[2020-08-09] MEDS: INSULIN LISPRO 100 UNIT/ML SUBCUT SCH ×4 (01:40→17:53)
[2020-08-09 05:57] LABS: Basophils % 0.2 % (0.0-0.8); Eosinophils # 0.3 10*3/uL (0.0-0.87); Hematocrit 29.8 VOL% (35.7-47.0); Hemoglobin 9.9 GM/DL (12.0-16.0); Immature Granulocytes % 4.7 %; Immature Granulocytes Absolute 0.61 #; Lymphocytes # 1.2 10*3/uL (1.4-4.0); Lymphocytes % 9.1 % (21.3-54.2); Mean Corpuscular HGB Conc 33.2 GM/DL (32-36); Mean Corpuscular Volume 92.8 FL (87-102); Mean Platelet Volume 10.2 FL (9.6-12.0); Monocytes % 4.1 % (1.7-12.7); Neutrophils % 79.9 % (38.7-73.9); Platelet Count 143 T/CUMM (130-400); Red Blood Count 3.21 MC/CUMM (3.8-5.5); Red Cell Distribution Width 17.3 % (9.3-17.3)
[2020-08-09 06:19] LABS: Atypical Lymphocytes Few; Band Neutrophils 2 % (0-10); Eosinophils 1 % (0-10); Hypochromasia Slight; Lymphocytes 14 % (20-55); Microcytosis 1+; Myelocytes 3 %; Polychromasia Slight; Segmented Neutrophils 76 % (50-85); Total Cells Counted 100
[2020-08-09 06:20] LABS: Platelet Estimate Adequate
[2020-08-09 06:24] LABS: Calcium 7.7 MG/DL (8.5-10.1); Osmolality,Calculated 305.4 MOS/KG (273-304); Potassium 4.2 MMOL/L (3.5-5.1)
[2020-08-09] MEDS: METOPROLOL TARTRATE 25 MG TABLET PO SCH ×2 (09:58→20:31)
[2020-08-09] MEDS: traMADol 50 MG TABLET PO SCH ×2 (09:59→20:31)
[2020-08-09] MEDS: FAMOTIDINE 20 MG/2 ML VIAL IV SCH (10:03)
[2020-08-09] MEDS: FLUCONAZOLE INJ 200 MG in PREMIX 1 EACH IV SCH (20:29)
[2020-08-10] MEDS: INSULIN LISPRO 100 UNIT/ML SUBCUT SCH ×4 (01:31→18:36)
[2020-08-10 08:29] LABS: Basophils % 0.2 % (0.0-0.8); Eosinophils # 0.4 10*3/uL (0.0-0.87); Eosinophils % 4.1 % (0.00-10.9); Hematocrit 28.5 VOL% (35.7-47.0); Hemoglobin 9.2 GM/DL (12.0-16.0); Immature Granulocytes Absolute 0.41 #; Mean Corpuscular HGB Conc 32.3 GM/DL (32-36); Mean Corpuscular Volume 93.4 FL (87-102); Mean Platelet Volume 10.2 FL (9.6-12.0); Monocytes % 4.7 % (1.7-12.7); Platelet Count 172 T/CUMM (130-400); Red Blood Count 3.05 MC/CUMM (3.8-5.5); Red Cell Distribution Width 17.2 % (9.3-17.3); White Blood Count 10.3 T/CUMM (4-12)
[2020-08-10 08:44] LABS: Calcium 7.6 MG/DL (8.5-10.1); Osmolality,Calculated 302.3 MOS/KG (273-304); Potassium 4.2 MMOL/L (3.5-5.1)
[2020-08-10] MEDS: ZINC OXIDE PASTE 113 GM TUBE TOP SCH ×2 (09:30→22:05)
[2020-08-10] MEDS: traMADol 50 MG TABLET PO SCH ×2 (09:50→22:05)
[2020-08-10] MEDS: METOPROLOL TARTRATE 25 MG TABLET PO SCH ×2 (09:50→22:04)
[2020-08-10] MEDS: FAMOTIDINE 20 MG TABLET PO SCH (09:50)
[2020-08-10 10:46] LABS: Basophils % 0.1 % (0.0-0.8); Eosinophils # 0.4 10*3/uL (0.0-0.87); Eosinophils % 3.5 % (0.00-10.9); Hematocrit 28.5 VOL% (35.7-47.0); Hemoglobin 9.1 GM/DL (12.0-16.0); Immature Granulocytes % 4.2 %; Immature Granulocytes Absolute 0.42 #; Lymphocytes # 1.2 10*3/uL (1.4-4.0); Lymphocytes % 11.5 % (21.3-54.2); Mean Corpuscular HGB Conc 31.9 GM/DL (32-36); Mean Corpuscular Volume 93.8 FL (87-102); Monocytes % 4.2 % (1.7-12.7); Neutrophils % 76.5 % (38.7-73.9); Platelet Count 169 T/CUMM (130-400); Red Blood Count 3.04 MC/CUMM (3.8-5.5); Red Cell Distribution Width 17.2 % (9.3-17.3); White Blood Count 10.1 T/CUMM (4-12)
[2020-08-10] MEDS: INSULIN GLARGINE 100 UNIT/ML SUBCUT SCH (21:58)
[2020-08-10] MEDS: FLUCONAZOLE INJ 200 MG in PREMIX 1 EACH IV SCH (22:06)
[2020-08-11] MEDS: INSULIN LISPRO 100 UNIT/ML SUBCUT SCH ×4 (00:25→18:04)
[2020-08-11] MEDS: LEVOTHYROXINE 125 MCG TABLET PER TUBE SCH (06:13)
[2020-08-11 07:14] LABS: Free T4 (Free Thyroxine) 0.23 NG/DL (0.76-1.46)
[2020-08-11] MEDS: FAMOTIDINE 20 MG TABLET PO SCH (09:01)
[2020-08-11] MEDS: METOPROLOL TARTRATE 25 MG TABLET PO SCH ×2 (09:01→20:48)
[2020-08-11] MEDS: ZINC OXIDE PASTE 113 GM TUBE TOP SCH ×2 (09:01→20:48)
[2020-08-11] MEDS: FLUCONAZOLE INJ 200 MG in PREMIX 1 EACH IV SCH (19:58)
[2020-08-11] MEDS: INSULIN GLARGINE 100 UNIT/ML SUBCUT SCH (20:48)
[2020-08-12] MEDS: INSULIN LISPRO 100 UNIT/ML SUBCUT SCH ×4 (00:28→18:27)
[2020-08-12 05:45] LABS: Basophils % 0.3 % (0.0-0.8); Eosinophils # 0.3 10*3/uL (0.0-0.87); Eosinophils % 3.9 % (0.00-10.9); Hematocrit 27.2 VOL% (35.7-47.0); Hemoglobin 8.7 GM/DL (12.0-16.0); Immature Granulocytes Absolute 0.31 #; Lymphocytes # 1.2 10*3/uL (1.4-4.0); Mean Corpuscular Volume 95.1 FL (87-102); Mean Platelet Volume 10.3 FL (9.6-12.0); Monocytes % 7.4 % (1.7-12.7); Neutrophils % 69.4 % (38.7-73.9); Platelet Count 221 T/CUMM (130-400); Red Blood Count 2.86 MC/CUMM (3.8-5.5); Red Cell Distribution Width 17.1 % (9.3-17.3); White Blood Count 7.7 T/CUMM (4-12)
[2020-08-12 05:58] LABS: Calcium 8.2 MG/DL (8.5-10.1); Osmolality,Calculated 307.3 MOS/KG (273-304); Potassium 3.9 MMOL/L (3.5-5.1)
[2020-08-12] MEDS: LEVOTHYROXINE 125 MCG TABLET PER TUBE SCH (06:13)
[2020-08-12] MEDS: METOPROLOL TARTRATE 25 MG TABLET PO SCH ×2 (10:19→20:33)
[2020-08-12] MEDS: FAMOTIDINE 20 MG TABLET PO SCH (10:19)
[2020-08-12] MEDS: ZINC OXIDE PASTE 113 GM TUBE TOP SCH ×2 (10:19→20:33)
[2020-08-12] MEDS: FLUCONAZOLE 200 MG TABLET PO SCH (12:42)
[2020-08-12] MEDS: INSULIN GLARGINE 100 UNIT/ML SUBCUT SCH (20:33)
[2020-08-13] MEDS: INSULIN LISPRO 100 UNIT/ML SUBCUT SCH ×4 (00:30→18:42)
[2020-08-13 05:43] LABS: Basophils % 0.4 % (0.0-0.8); Eosinophils # 0.3 10*3/uL (0.0-0.87); Eosinophils % 2.9 % (0.00-10.9); Hematocrit 28.1 VOL% (35.7-47.0); Hemoglobin 9.2 GM/DL (12.0-16.0); Immature Granulocytes % 3.9 %; Immature Granulocytes Absolute 0.36 #; Lymphocytes # 1.1 10*3/uL (1.4-4.0); Lymphocytes % 11.7 % (21.3-54.2); Mean Corpuscular HGB Conc 32.7 GM/DL (32-36); Mean Platelet Volume 9.9 FL (9.6-12.0); Monocytes % 6.7 % (1.7-12.7); Neutrophils % 74.4 % (38.7-73.9); Platelet Count 227 T/CUMM (130-400); Red Blood Count 3.02 MC/CUMM (3.8-5.5); Red Cell Distribution Width 17.1 % (9.3-17.3); White Blood Count 9.2 T/CUMM (4-12)
[2020-08-13 06:08] LABS: Calcium 8.1 MG/DL (8.5-10.1); Osmolality,Calculated 306.3 MOS/KG (273-304); Potassium 4.2 MMOL/L (3.5-5.1)
[2020-08-13 06:12] LABS: Calcium 8.3 MG/DL (8.5-10.1); Osmolality,Calculated 302.4 MOS/KG (273-304); Potassium 4.2 MMOL/L (3.5-5.1)
[2020-08-13] MEDS: LEVOTHYROXINE 125 MCG TABLET PER TUBE SCH (06:28)
[2020-08-13] MEDS ORDERED: MAGNESIUM OXIDE 400 MG TABLET PO ONE ×2 (08:15→21:00)
[2020-08-13] MEDS: METOPROLOL TARTRATE 25 MG TABLET PO SCH ×2 (08:27→21:53)
[2020-08-13] MEDS: ZINC OXIDE PASTE 113 GM TUBE TOP SCH ×2 (08:27→21:54)
[2020-08-13] MEDS: FAMOTIDINE 20 MG TABLET PO SCH (08:27)
[2020-08-13] MEDS: FLUCONAZOLE 200 MG TABLET PO SCH (08:27)
[2020-08-13] MEDS ORDERED: MAGNESIUM SULF RIDER 2 GM in PREMIX 1 EACH IV ONE (09:00)
[2020-08-13] MEDS: hydrALAZINE 25 MG TABLET PO SCH (21:53)
[2020-08-13] MEDS: MAGNESIUM OXIDE 400 MG TABLET PO SCH (21:53)
[2020-08-13] MEDS: INSULIN GLARGINE 100 UNIT/ML SUBCUT SCH (21:53)
[2020-08-14] MEDS: INSULIN LISPRO 100 UNIT/ML SUBCUT SCH ×5 (00:14→23:18)
[2020-08-14] MEDS: LEVOTHYROXINE 125 MCG TABLET PER TUBE SCH (05:47)
[2020-08-14 06:40] LABS: Basophils % 0.4 % (0.0-0.8); Eosinophils # 0.2 10*3/uL (0.0-0.87); Eosinophils % 1.9 % (0.00-10.9); Hematocrit 28.7 VOL% (35.7-47.0); Hemoglobin 9.1 GM/DL (12.0-16.0); Immature Granulocytes % 4.2 %; Immature Granulocytes Absolute 0.45 #; Lymphocytes # 1.4 10*3/uL (1.4-4.0); Lymphocytes % 12.8 % (21.3-54.2); Mean Corpuscular HGB Conc 31.7 GM/DL (32-36); Mean Corpuscular Volume 93.8 FL (87-102); Mean Platelet Volume 9.9 FL (9.6-12.0); Monocytes % 5.6 % (1.7-12.7); Neutrophils % 75.1 % (38.7-73.9); Platelet Count 265 T/CUMM (130-400); Red Blood Count 3.06 MC/CUMM (3.8-5.5); Red Cell Distribution Width 17.2 % (9.3-17.3); White Blood Count 10.8 T/CUMM (4-12)
[2020-08-14 07:09] LABS: Osmolality,Calculated 305.1 MOS/KG (273-304)
[2020-08-14] MEDS ORDERED: GLUCOSE GEL 15 GM TUBE PO ONE (07:55)
[2020-08-14] MEDS: hydrALAZINE 25 MG TABLET PO SCH ×2 (08:00→20:35)
[2020-08-14] MEDS ORDERED: MAGNESIUM SULF RIDER 4 GM in PREMIX 1 EACH IV ONE (08:00)
[2020-08-14] MEDS: FLUCONAZOLE 200 MG TABLET PO SCH (08:01)
[2020-08-14] MEDS: ZINC OXIDE PASTE 113 GM TUBE TOP SCH ×2 (08:01→20:35)
[2020-08-14] MEDS: FAMOTIDINE 20 MG TABLET PO SCH (08:01)
[2020-08-14] MEDS: MAGNESIUM OXIDE 400 MG TABLET PO SCH ×2 (08:01→20:35)
[2020-08-14] MEDS: METOPROLOL TARTRATE 25 MG TABLET PO SCH ×2 (08:59→20:35)
[2020-08-14] MEDS: INSULIN GLARGINE 100 UNIT/ML SUBCUT SCH (20:36)
[2020-08-15] MEDS: LEVOTHYROXINE 125 MCG TABLET PER TUBE SCH (05:44)
[2020-08-15 06:18] LABS: Basophils % 0.5 % (0.0-0.8); Eosinophils # 0.2 10*3/uL (0.0-0.87); Hematocrit 26.8 VOL% (35.7-47.0); Hemoglobin 8.6 GM/DL (12.0-16.0); Immature Granulocytes % 3.6 %; Lymphocytes # 1.2 10*3/uL (1.4-4.0); Lymphocytes % 14.3 % (21.3-54.2); Mean Corpuscular HGB Conc 32.1 GM/DL (32-36); Mean Corpuscular Volume 93.4 FL (87-102); Mean Platelet Volume 10.1 FL (9.6-12.0); Monocytes % 6.1 % (1.7-12.7); Neutrophils % 73.5 % (38.7-73.9); Platelet Count 243 T/CUMM (130-400); Red Blood Count 2.87 MC/CUMM (3.8-5.5); Red Cell Distribution Width 16.9 % (9.3-17.3); White Blood Count 8.4 T/CUMM (4-12)
[2020-08-15 06:37] LABS: Albumin 1.7 G/DL (3.4-5.0); Calcium 8.2 MG/DL (8.5-10.1); Osmolality,Calculated 307.3 MOS/KG (273-304); Potassium 4.2 MMOL/L (3.5-5.1); Total Protein 5.3 G/DL (5.0-7.5)
[2020-08-15] MEDS: INSULIN LISPRO 100 UNIT/ML SUBCUT SCH ×3 (06:42→17:53)
[2020-08-15] MEDS: hydrALAZINE 25 MG TABLET PO SCH ×2 (09:48→20:51)
[2020-08-15] MEDS: MAGNESIUM OXIDE 400 MG TABLET PO SCH ×2 (09:48→20:51)
[2020-08-15] MEDS: FLUCONAZOLE 200 MG TABLET PO SCH (09:49)
[2020-08-15] MEDS: ZINC OXIDE PASTE 113 GM TUBE TOP SCH ×2 (09:49→20:57)
[2020-08-15] MEDS: FAMOTIDINE 20 MG TABLET PO SCH (09:49)
[2020-08-15] MEDS: METOPROLOL TARTRATE 25 MG TABLET PO SCH ×2 (09:49→21:03)
[2020-08-15] MEDS: INSULIN GLARGINE 100 UNIT/ML SUBCUT SCH (20:58)
[2020-08-16] MEDS: INSULIN LISPRO 100 UNIT/ML SUBCUT SCH ×4 (00:43→17:50)
[2020-08-16] MEDS: LEVOTHYROXINE 125 MCG TABLET PER TUBE SCH (05:38)
[2020-08-16 06:12] LABS: Basophils % 0.6 % (0.0-0.8); Eosinophils # 0.2 10*3/uL (0.0-0.87); Eosinophils % 2.9 % (0.00-10.9); Hematocrit 24.6 VOL% (35.7-47.0); Hemoglobin 7.8 GM/DL (12.0-16.0); Immature Granulocytes % 2.5 %; Immature Granulocytes Absolute 0.17 #; Lymphocytes # 1.1 10*3/uL (1.4-4.0); Lymphocytes % 16.2 % (21.3-54.2); Mean Corpuscular HGB Conc 31.7 GM/DL (32-36); Mean Corpuscular Volume 94.6 FL (87-102); Mean Platelet Volume 10.1 FL (9.6-12.0); Monocytes % 5.8 % (1.7-12.7); Platelet Count 244 T/CUMM (130-400); Red Cell Distribution Width 16.9 % (9.3-17.3); White Blood Count 6.9 T/CUMM (4-12)
[2020-08-16 06:31] LABS: Calcium 8.2 MG/DL (8.5-10.1); Osmolality,Calculated 306.1 MOS/KG (273-304); Potassium 4.3 MMOL/L (3.5-5.1)
[2020-08-16 06:40] LABS: Atypical Lymphocytes Few; Band Neutrophils 3 % (0-10); Eosinophils 2 % (0-10); Hypochromasia Slight; Lymphocytes 13 % (20-55); Microcytosis 1+; Myelocytes 1 %; Segmented Neutrophils 73 % (50-85); Total Cells Counted 100
[2020-08-16] MEDS: hydrALAZINE 25 MG TABLET PO SCH ×2 (08:58→21:24)
[2020-08-16] MEDS: MAGNESIUM OXIDE 400 MG TABLET PO SCH ×2 (08:58→21:24)
[2020-08-16] MEDS: FLUCONAZOLE 200 MG TABLET PO SCH (08:58)
[2020-08-16] MEDS: FAMOTIDINE 20 MG TABLET PO SCH (08:58)
[2020-08-16] MEDS: METOPROLOL TARTRATE 25 MG TABLET PO SCH ×2 (08:58→21:24)
[2020-08-16] MEDS: ZINC OXIDE PASTE 113 GM TUBE TOP SCH ×2 (08:58→21:24)
[2020-08-16] MEDS: INSULIN GLARGINE 100 UNIT/ML SUBCUT SCH (21:24)
[2020-08-17] MEDS: INSULIN LISPRO 100 UNIT/ML SUBCUT SCH ×4 (00:22→18:00)
[2020-08-17] MEDS: LEVOTHYROXINE 125 MCG TABLET PER TUBE SCH (06:52)
[2020-08-17] MEDS: METOPROLOL TARTRATE 25 MG TABLET PO SCH ×2 (08:55→20:59)
[2020-08-17] MEDS: hydrALAZINE 25 MG TABLET PO SCH ×2 (08:55→20:59)
[2020-08-17] MEDS: MAGNESIUM OXIDE 400 MG TABLET PO SCH ×2 (08:55→21:01)
[2020-08-17] MEDS: FAMOTIDINE 20 MG TABLET PO SCH (08:56)
[2020-08-17] MEDS: ZINC OXIDE PASTE 113 GM TUBE TOP SCH ×2 (08:56→21:00)
[2020-08-17] MEDS ORDERED: TUBERCULIN SKIN TEST 0.1 ML SYRINGE INTRADERM ONE (17:28)
[2020-08-17] MEDS: INSULIN GLARGINE 100 UNIT/ML SUBCUT SCH (21:00)
[2020-08-18] MEDS: INSULIN LISPRO 100 UNIT/ML SUBCUT SCH ×4 (00:08→18:33)
[2020-08-18] MEDS: LEVOTHYROXINE 125 MCG TABLET PER TUBE SCH (05:40)
[2020-08-18] MEDS: MAGNESIUM OXIDE 400 MG TABLET PO SCH ×2 (08:20→21:20)
[2020-08-18] MEDS: FAMOTIDINE 20 MG TABLET PO SCH (08:21)
[2020-08-18] MEDS: ZINC OXIDE PASTE 113 GM TUBE TOP SCH ×2 (08:21→21:21)
[2020-08-18] MEDS: hydrALAZINE 25 MG TABLET PO SCH ×2 (08:31→21:20)
[2020-08-18] MEDS: METOPROLOL TARTRATE 25 MG TABLET PO SCH ×2 (08:32→21:20)
[2020-08-18] MEDS: INSULIN GLARGINE 100 UNIT/ML SUBCUT SCH (21:21)
[2020-08-19] MEDS: INSULIN LISPRO 100 UNIT/ML SUBCUT SCH ×4 (01:00→18:14)
[2020-08-19] MEDS: LEVOTHYROXINE 125 MCG TABLET PER TUBE SCH (05:33)
[2020-08-19] MEDS: METOPROLOL TARTRATE 25 MG TABLET PO SCH ×2 (08:40→20:05)
[2020-08-19] MEDS: MAGNESIUM OXIDE 400 MG TABLET PO SCH ×2 (08:40→20:05)
[2020-08-19] MEDS: hydrALAZINE 25 MG TABLET PO SCH ×2 (08:40→20:07)
[2020-08-19] MEDS: FAMOTIDINE 20 MG TABLET PO SCH (08:41)
[2020-08-19] MEDS: ZINC OXIDE PASTE 113 GM TUBE TOP SCH ×2 (08:41→20:06)
[2020-08-19] MEDS: DEXTROSE 50% 25 GM/50 ML VIAL IV PRN (18:35)
[2020-08-19] MEDS: INSULIN GLARGINE 100 UNIT/ML SUBCUT SCH (20:06)
[2020-08-20] MEDS: INSULIN LISPRO 100 UNIT/ML SUBCUT SCH ×4 (02:50→17:12)
[2020-08-20] MEDS: LEVOTHYROXINE 125 MCG TABLET PER TUBE SCH (06:37)
[2020-08-20] MEDS: hydrALAZINE 25 MG TABLET PO SCH ×2 (09:30→21:36)
[2020-08-20] MEDS: METOPROLOL TARTRATE 25 MG TABLET PO SCH ×2 (09:30→21:36)
[2020-08-20] MEDS: MAGNESIUM OXIDE 400 MG TABLET PO SCH ×2 (09:31→21:36)
[2020-08-20] MEDS: FAMOTIDINE 20 MG TABLET PO SCH (09:31)
[2020-08-20] MEDS: ZINC OXIDE PASTE 113 GM TUBE TOP SCH ×2 (09:31→21:36)
[2020-08-20] MEDS ORDERED: METOPROLOL TARTRATE 5 MG/5 ML VIAL IV ONE (19:43)
[2020-08-20] MEDS: INSULIN GLARGINE 100 UNIT/ML SUBCUT SCH (21:35)
[2020-08-21] MEDS: INSULIN LISPRO 100 UNIT/ML SUBCUT SCH ×5 (00:53→21:01)
[2020-08-21] MEDS: LEVOTHYROXINE 125 MCG TABLET PER TUBE SCH (06:11)
[2020-08-21] MEDS: DEXTROSE 50% 25 GM/50 ML VIAL IV PRN (06:20)
[2020-08-21] MEDS: hydrALAZINE 25 MG TABLET PO SCH ×2 (09:09→21:00)
[2020-08-21] MEDS: FAMOTIDINE 20 MG TABLET PO SCH (09:09)
[2020-08-21] MEDS: METOPROLOL TARTRATE 25 MG TABLET PO SCH ×2 (09:09→21:00)
[2020-08-21] MEDS: MAGNESIUM OXIDE 400 MG TABLET PO SCH ×2 (09:09→21:00)
[2020-08-21] MEDS: ZINC OXIDE PASTE 113 GM TUBE TOP SCH ×2 (09:10→21:00)
[2020-08-21 21:19] VITALS: BP 116/60
== END 2020-08-21 21:55 | disposition hospice, inpatient (51) | DRG 673 ==
LOC: SUATTDRO 16:53 → N.CC 16:53 → N.3E 08-03 20:42
PROVIDERS: ADMIT Internal Medicine; ATTEND Internal Medicine